=== PATIENT | male | born 1970 | race Hispanic/Latino ===

== ENCOUNTER 2016-10-10 17:44 | Emergency (ER) | payer BC ==
[~2016-10-10] VITALS: Ht 177.8 cm; Wt 89.9 kg
[2016-10-10 18:50] LABS: HEMATOCRIT 39.2 % (38.0-50.0); MCH 30.1 PG (29.0-34.0); MCHC 34.4 G/DL (30.0-36.0); MCV 87.5 FL (86-99); MEAN PLAT.VOLUME 10.5 uM^3 (9.0-12.4); PLATELET COUNT 149 K/uL (156-360); RBC DIS.WIDTH-SD 41.1 % (39-53); RED BLOOD COUNT 4.48 M/uL (4.00-5.50); WHITE BLOOD COUNT 6.3 K/uL (4.1-10.2)
[2016-10-10 19:01] LABS: CHLORIDE 106 mEq/L (99-109); POTASSIUM 3.9 mEq/L (3.7-5.4); SODIUM 143 mEq/L (136-147)
[2016-10-10 19:02] LABS: GLUCOSE 131 mg/dL (70-99)
[2016-10-10 19:04] LABS: ANION GAP 9 MEQ/L (2-14)
[2016-10-10 19:06] LABS: GFR ESTIMATE (CALCULATED) > 59 mL/min/
[2016-10-10 19:07] LABS: UREA NITROGEN (BUN) 25 mg/dL (9-23)
[2016-10-10 19:15] LABS: TROP-I INTERPRETATION NEGATIVE; TROPONIN-I < 0.01 ng/mL (0.0-0.30)
[2016-10-10 20:17] LABS: D-DIMER ELISA 0.54 mg/L FEU (< 0.57)
[2016-10-10 21:31] LABS: TROP-I INTERPRETATION NEGATIVE; TROPONIN-I < 0.01 ng/mL (0.0-0.30)
[2016-10-10 23:07] VITALS: BP 113/72
== END 2016-10-10 23:08 | disposition home or self-care (01) ==
LOC: EME 17:44
PROVIDERS: Emergency Medicine
DX: R07.9 Chest pain, unspecified (principal); R00.2 Palpitations; R06.02 Shortness of breath; E11.9 Type 2 diabetes mellitus without complications; Z79.84 Long term (current) use of oral hypoglycemic drugs
CPT/HCPCS: 71020; 71275; 80048; 84484; 85027; 85379; 93005; 99281; 99285

== ENCOUNTER 2017-11-07 17:23 | Emergency (ER) | payer BC ==
[~2017-11-07] VITALS: Ht 182.9 cm; Wt 89.3 kg
[2017-11-07 17:59] LABS: APPEARANCE CLEAR ((CLEAR)); BILIRUBIN NEGATIVE; BLOOD NEGATIVE; COLOR YELLOW ((YELLOW)); GLUCOSE (STRIP) NEGATIVE; KETONES NEGATIVE; LEUKOCYTES NEGATIVE; NITRITE NEGATIVE; PROTEIN (STRIP) 100; SPECIFIC GRAVITY 1.026 (1.000-1.030)
[2017-11-07 18:02] LABS: BACTERIA NONE SEEN /HPF; EPITHELIAL CELLS RARE /HPF; MUCUS NONE SEEN /LPF; RED BLOOD CELLS 0-5 /HPF (0-5); UCUL ADDED? NO; WHITE BLOOD CELLS 0-5 /HPF (0-5)
[2017-11-07 18:11] LABS: HEMATOCRIT 40.2 % (38.0-50.0); HEMOGLOBIN 14.1 G/DL (12.5-16.6); MCH 30.1 PG (29.0-34.0); MCHC 35.1 G/DL (30.0-36.0); MCV 85.7 FL (86-99); PLATELET COUNT 148 K/uL (156-360); RBC DIS.WIDTH-CV 12.8 % (11.8-14.6); RBC DIS.WIDTH-SD 39.7 % (39-53); RED BLOOD COUNT 4.69 M/uL (4.00-5.50); WHITE BLOOD COUNT 6.3 K/uL (4.1-10.2)
[2017-11-07 18:28] LABS: ALBUMIN 4.3 g/dL (3.2-4.8); CHLORIDE 103 mEq/L (99-109); POTASSIUM 3.7 mEq/L (3.7-5.4); SODIUM 139 mEq/L (136-147)
[2017-11-07 18:30] LABS: GLUCOSE 124 mg/dL (70-99); TOTAL PROTEIN 7.5 g/dL (6.4-8.3)
[2017-11-07 18:32] LABS: TOTAL BILIRUBIN 0.9 mg/dL (0.0-1.0)
[2017-11-07 18:34] LABS: ALKALINE PHOSPHATASE 87 IU/L (3-129); GFR ESTIMATE (CALCULATED) > 59 mL/min/ (58.99-99999)
[2017-11-07 18:35] LABS: UREA NITROGEN (BUN) 22 mg/dL (9-23)
[2017-11-07 18:36] LABS: AST (GOT) 36 IU/L (2-34)
[2017-11-07 18:37] LABS: ALT (GPT) 40 IU/L (3-49)
[2017-11-07] MEDS ORDERED: FLOMAX0.4 MG PO (20:52)
[2017-11-07] MEDS ORDERED: ULTRAM50 MG PO (20:52)
[2017-11-07] MEDS ORDERED: MOTRIN800 MG PO (20:52)
[2017-11-07 21:00] VITALS: BP 129/83
== END 2017-11-07 21:00 | disposition home or self-care (01) ==
LOC: EME 17:23 → RME 17:23
PROVIDERS: Nurse Practitioner Family
DX: N20.0 Calculus of kidney (principal); Z87.442 Personal history of urinary calculi; Z90.49 Acquired absence of other specified parts of digestive tract; E11.9 Type 2 diabetes mellitus without complications
CPT/HCPCS: 74176; 80053; 81003; 85027; 99281; 99284; J1885